=== PATIENT | male | born 1940 | race Caucasian/White ===

== ENCOUNTER 2017-07-01 07:38 | Day surgery (SDC) | payer MEDICARE ==
[2017-07-01] MEDS ORDERED: LACTATED RINGERS 1,000 ML IV ONE (07:45)
[2017-07-01] MEDS ORDERED: fentaNYL 100 MCG/2 ML VIAL IVP ONE (10:04)
[2017-07-01 10:37] VITALS: BP 139/81
== END 2017-07-01 07:39 | disposition home or self-care (01) ==
LOC: SDS 07:38
PROVIDERS: ATTEND Internal Medicine Gastroenterology
PROC: 0DBN8ZX Excision of Sigmoid Colon, Via Natural or Artificial Opening Endoscopic, Diagnostic (ICD-10-PCS; principal; 2017-07-01 08:45)
DX: Z12.11 Encounter for screening for malignant neoplasm of colon (principal); K63.5 Polyp of colon; K57.30 Diverticulosis of large intestine without perforation or abscess without bleeding; K64.8 Other hemorrhoids; I10 Essential (primary) hypertension; G47.30 Sleep apnea, unspecified; E66.01 Morbid (severe) obesity due to excess calories; Z68.41 Body mass index [BMI] 40.0-44.9, adult
CPT/HCPCS: 45380; 93005; J7120; 88305

== ENCOUNTER 2018-03-12 16:25 | Outpatient (CLI) | payer MEDICARE ==
--- NOTE | 2018-03-13 00:40 | XRAY Report ---
Reason: Right ankle pain and swelling Procedure Date: 03/12/2018 Accession Number: [id number] / [id number] Procedure: XR - Ankle 3 View RT CPT Code: FULL RESULT: EXAM: RIGHT ANKLE RADIOGRAPHY EXAM DATE: 03/12/2018 04:49 PM. CLINICAL HISTORY: Right ankle pain and swelling, worsening over last year. COMPARISON: None. TECHNIQUE: 3 views. FINDINGS: Bones: Old ununited avulsion fracture at the medial malleolar tip. Joints: No subluxation. Severe narrowing with sclerosis involving the talofibular joint and the lateral talotibial joint. Anterior and posterior tibial spurring. Soft Tissues: Lateral soft tissue swelling with dystrophic calcification. IMPRESSION: 1. Advanced osteoarthritis of the ankle joint. 2. Old ununited medial malleolar fracture fragment. RADIA
--- NOTE | 2018-03-13 00:49 | XRAY Report ---
Reason: Cough Procedure Date: 03/12/2018 Accession Number: [id number] / [id number] Procedure: XR - Chest 2 View X-Ray CPT Code: 66785 FULL RESULT: EXAM: CHEST RADIOGRAPHY EXAM DATE: 03/12/2018 04:49 PM. CLINICAL HISTORY: Cough for 3 weeks. COMPARISON: XR CHEST 1 VIEWS 10/21/2010 3:08 AM. TECHNIQUE: 2 views. FINDINGS: Lungs/Pleura: Stable mild scarring of the lateral left base, otherwise no focal opacities evident. No pleural effusion. No pneumothorax. Normal volumes. Mediastinum: Heart and mediastinal contours are unremarkable. Other: No compression fractures. IMPRESSION: No acute pulmonary abnormality or interval change. RADIA
== END 2018-03-12 16:26 | disposition home or self-care (01) ==
LOC: DI 16:25
PROVIDERS: ATTEND Internal Medicine
DX: M19.071 Primary osteoarthritis, right ankle and foot (principal); R05 Cough
CPT/HCPCS: 71046

== ENCOUNTER 2020-06-14 07:00 | Outpatient (CLI) | payer MEDICARE | END 2020-06-14 23:59 | disposition home or self-care (01) | LOC: COV 07:00 | PROVIDERS: ATTEND Family Medicine | DX: U07.1 COVID-19 (principal) ==

== ENCOUNTER 2020-07-23 13:09 | Outpatient (CLI) | payer MEDICARE ==
--- NOTE | 2020-07-23 15:41 | XRAY Report ---
PROCEDURE: Shoulder 3 View LT INDICATIONS: LEFT SHOULDER PAIN TECHNIQUE: 3 views of the shoulder were acquired. COMPARISON: None. FINDINGS: Bones: No fractures or dislocations. There is moderate to severe degeneration of the glenohumeral j oint with an space narrowing, subchondral sclerosis, and osteophytosis inferiorly. There is minimal a cromioclavicular joint degeneration. No suspicious bony lesions. Visualized ribs appear intact. Soft tissues: No suspicious soft tissue calcifications. IMPRESSION: 1. Moderate to severe glenohumeral joint degeneration. Reviewed by: Shawn March MD on 07/23/2020 3:40 PM PDT Approved by: Shawn March MD on 07/23/2020 3:40 PM PDT Station ID: [id number]
== END 2020-07-23 13:10 | disposition home or self-care (01) ==
LOC: DI 13:09
PROVIDERS: ATTEND Internal Medicine
DX: M19.012 Primary osteoarthritis, left shoulder (principal)

== ENCOUNTER 2020-07-26 14:35 | Emergency (ER) | payer MEDICARE ==
[2020-07-26 15:03] LABS: BASOPHILS % (AUTO) 0.7 %; EOSINOPHILS # (AUTO) 0.4 10^3/uL (0.0-0.7); EOSINOPHILS % (AUTO) 9.5 %; HCT - HEMATOCRIT 34.6 % (42.0-52.0); HGB - HEMOGLOBIN 12.2 g/dL (14.0-18.0); LYMPHOCYTES # (AUTO) 1.5 10^3/uL (1.5-3.5); LYMPHOCYTES % (AUTO) 35.9 %; MEAN CORPUSCULAR HEMOGLOBIN 35.2 pg (27.0-31.0); MEAN CORPUSCULAR HGB CONC 35.3 g/dL (32.0-36.0); MEAN CORPUSCULAR VOLUME 99.7 fL (80.0-94.0); MEAN PLATELET VOLUME 9.6 fL (7.4-11.4); MONOCYTES # (AUTO) 0.4 10^3/uL (0.0-1.0); MONOCYTES % (AUTO) 9.7 %; NEUTROPHILS # (AUTO) 1.9 10^3/uL (1.5-6.6); PLT - PLATELET COUNT 161 10^3/uL (130-450); RED BLOOD COUNT 3.47 10^6/uL (4.70-6.10); RED CELL DISTRIBUTION WIDTH 13.7 % (12.0-15.0); WHITE BLOOD COUNT 4.2 x10^3/uL (4.8-10.8)
[2020-07-26 15:14] LABS: ALBUMIN 3.6 g/dL (3.2-5.5); ALBUMIN/GLOBULIN RATIO 1.4 (1.0-2.2); BILIRUBIN,TOTAL 1.2 mg/dL (0.2-1.0); CALCIUM 9.4 mg/dL (8.5-10.3); CREATININE 1.2 mg/dL (0.6-1.2); MAGNESIUM 1.7 mg/dL (1.7-2.8); POTASSIUM 3.7 mmol/L (3.5-5.0); TOTAL PROTEIN 6.2 g/dL (6.7-8.2)
--- NOTE | 2020-07-26 15:17 | XRAY Report ---
PROCEDURE: Chest 1 View X-Ray INDICATIONS: Chest pain TECHNIQUE: One view of the chest was acquired. COMPARISON: 03/12/2018 FINDINGS: Surgical changes and devices: Small metallic density is seen projecting in left hilar region, unchang ed from prior study. Lungs and pleura: No pleural effusions or pneumothorax. Lungs are clear. Mediastinum: Mediastinal contours appear normal. Heart size is normal. Bones and chest wall: No suspicious bony lesions. Overlying soft tissues appear unremarkable. IMPRESSION: No acute cardiopulmonary pathology. Reviewed by: Johnnie Nathan MD on 07/26/2020 3:15 PM PDT Approved by: Johnnie Nathan MD on 07/26/2020 3:15 PM PDT Station ID: [id number]
--- NOTE | 2020-07-26 15:34 | ED Physician Documentation ---
PD HPI CHEST PAIN - Stated complaint Stated Complaint: ABNORMAL EKG - Chief complaint Chief Complaint: Cardiac - History obtained from History obtained from: Patient - Additional information Additional information: 80-year-old gentleman had life screening done yesterday and was told he was in atrial fibrillation and was referred to the emergency department. Its not exactly clear how the atrial fibrillation was diagnosed, he says there were stickers on his arm but not on his chest. So presume there was some sort of telemetry strip done. They did not give it to him. He says he feels fine. Has not been having any symptoms yesterday or today. No recent issues with chest pain or trouble breathing or pedal edema. Review of Systems Ten Systems: 10 systems reviewed and negative Constitutional: reports: Reviewed and negative Nose: reports: Reviewed and negative Throat: reports: Reviewed and negative Cardiac: reports: Reviewed and negative Respiratory: reports: Reviewed and negative PD PAST MEDICAL HISTORY - Past Medical History Cardiovascular: Hypertension, Arrhythmia Respiratory: Sleep apnea, CPAP use Endocrine/Autoimmune: None GI: Cholelithiasis, Other : Nocturia HEENT: Chronic sinusitis, Chronic hearing loss Psych: Depression, Post traumatic stress disorder Musculoskeletal: Osteoarthritis Derm: None - Past Surgical History General: Cholecystectomy Ortho: Knee replacement, Other HEENT: Cataracts - Present Medications Home Medications: Ambulatory Orders Medication Instructions Recorded Confirmed Amlodipine Besylate DAILY 07/12/13 07/13/13 Etodolac 07/12/13 07/12/13 Lisinopril/Hydrochlorothiazide BID 07/12/13 07/12/13 [Lisinopril-Hctz 20-25 mg Tab] hydroCHLOROthiazide 07/12/13 07/12/13 [Hydrochlorothiazide] - Allergies Allergies/Adverse Reactions: Allergies Allergy/AdvReac Type Severity Reaction Status Date / Time No Known Drug Allergies Allergy Verified 07/26/20 14:44 PD ED PE NORMAL - Vitals Vital signs reviewed: Yes - General General: Alert and oriented X 3, No acute distress - HEENT HEENT: PERRL, EOMI - Neck Neck: Supple, no meningeal sign, No bony TTP - Cardiac Cardiac: RRR, No murmur, Other (Frequent extrasystoles corresponding to PVCs on the monitor, no atrial arrhythmia.) - Respiratory Respiratory: No respiratory distress, Clear bilaterally - Abdomen Abdomen: Non tender - Back Back: No CVA TTP, No spinal TTP - Derm Derm: Normal color, Warm and dry - Extremities Extremities: No edema, No calf tenderness / cord - Neuro Neuro: Alert and oriented X 3, Normal speech Results - Vitals Vitals: Vital Signs - 24 hr 07/26/20 07/26/20 14:41 16:00 Temperature 36.1 C L 36.7 C Heart Rate 91 81 Respiratory 20 16 Rate Blood Pressure 166/75 H 152/75 H O2 Saturation 98 99 Oxygen O2 Source Room air - EKG (time done) 1441 Rate: Rate (enter#) (85) Rhythm: NSR (w pvcs) [place]: Normal Intervals: RBBB (incomplete) QRS: Normal Ischemia: Normal ST segments - Labs Labs: Laboratory Tests 07/26/20 07/26/20 07/26/20 14:54 14:54 14:54 WBC 4.2 L RBC 3.47 L Hgb 12.2 L Hct 34.6 L MCV 99.7 H MCH 35.2 H MCHC 35.3 RDW 13.7 Plt Count 161 MPV 9.6 Neut # (Auto) 1.9 Lymph # (Auto) 1.5 [place] # (Auto) 0.4 Eos # (Auto) 0.4 Baso # (Auto) 0.0 Absolute Nucleated RBC 0.00 Nucleated RBC % 0.0 Sodium 137 Potassium 3.7 Chloride 102 Carbon Dioxide 27 Anion Gap 8.0 BUN 22 H Creatinine 1.2 Estimated GFR (MDRD) 59 L Glucose 109 H Calcium 9.4 Magnesium 1.7 Total Bilirubin 1.2 H AST 18 ALT 18 Alkaline Phosphatase 60 Troponin I High Sens 5.1 Total Protein 6.2 L Albumin 3.6 Globulin 2.6 Albumin/Globulin Ratio 1.4 Lipase 28 TSH 07/26/20 14:54 WBC RBC Hgb Hct MCV MCH MCHC RDW Plt Count MPV Neut # (Auto) Lymph # (Auto) [place] # (Auto) Eos # (Auto) Baso # (Auto) Absolute Nucleated RBC Nucleated RBC % Sodium Potassium Chloride Carbon Dioxide Anion Gap BUN Creatinine Estimated GFR (MDRD) Glucose Calcium Magnesium Total Bilirubin AST ALT Alkaline Phosphatase Troponin I High Sens Total Protein Albumin Globulin Albumin/Globulin Ratio Lipase TSH 0.88 PD MEDICAL DECISION MAKING - ED course ED course: 80-year-old gentleman presents with potential asymptomatic A. fib. He has PVCs here but no evidence of A. fib. It is unclear whether he was actually ever in A. fib. Discussed that he could follow-up with his doctor and discuss Holter monitoring if there is persistent concern. Departure - Departure Disposition: 01 Home, Self Care Clinical Impression: PVCs (premature ventricular contractions) Condition: Good Record reviewed to determine appropriate education?: Yes Instructions: ED Palpitations Comments: We did not see any evidence of atrial fibrillation today. Follow-up with your primary care physician for further evaluation and treatment. Discharge Date/Time: 07/26/20 16:00
[2020-07-26 16:07] VITALS: BP 152/75
== END 2020-07-26 16:00 | disposition home or self-care (01) ==
LOC: ED 14:35
DX: I49.3 Ventricular premature depolarization (principal); I10 Essential (primary) hypertension
CPT/HCPCS: 36415; 80053; 83690; 83735; 84443; 84484; 85025; 93005; 99283; 99284

== ENCOUNTER 2021-01-27 14:49 | Outpatient (CLI) | payer MEDICARE ==
--- NOTE | 2021-01-27 15:44 | XRAY Report ---
PROCEDURE: Chest 2 View X-Ray INDICATIONS: CHEST PAIN TECHNIQUE: 2 view(s) of the chest. COMPARISON: July 26, 2020 FINDINGS: SUPPORT DEVICES: Redemonstrated metallic density in the left chest wall. LUNGS/PLEURA: Bibasilar densities, concerning for pneumonic infiltrates. No pleural effusion or pneum othorax. MEDIASTINUM: The cardiomediastinal silhouette is within normal limits. BONES/SOFT TISSUES: No acute abnormality. IMPRESSION: 1.Patchy bibasilar pneumonic infiltrates. Reviewed by: Pedro Dunne MD on 01/27/2021 3:43 PM PST Approved by: Pedro Dunne MD on 01/27/2021 3:43 PM PST Station ID: [id number]
== END 2021-01-27 14:50 | disposition home or self-care (01) ==
LOC: DI 14:49
PROVIDERS: ATTEND Internal Medicine
DX: R91.8 Other nonspecific abnormal finding of lung field (principal)

== ENCOUNTER 2021-02-02 20:00 | Emergency (ER) | payer MEDICARE ==
--- NOTE | 2021-02-02 20:33 | ED Physician Documentation ---
History of Present Illness - Stated complaint Stated Complaint: DECLINE/LOW BACK PX - Chief complaint Chief Complaint: Abd Pain - Additonal information Additional information: 80-year-old male presents to the emergency department For evaluation of approximately 1 month of low back pain. No falls or trauma. He denies saddle anesthesia. However he reports that he has been dribbling urine constantly for perhaps just as long as he has had the back pain. He was recently treated for pneumonia by Dr. Ho. He finished his antibiotics yesterday. He denies any has any pain with urination. No fevers or diarrhea. He has been taking tramadol with minimal relief of the pain. No saddle anesthesia. History is quite limited from this gentleman as his reports that he is very hard of hearing and in addition to that she finds that he has become increasingly confused. He has no obvious focal neuro deficits. His speech is fluid. His is concerned because he seems to be increasingly forgetful after his COVID-19 vaccine. She also attributes the low back pain and urinary retention to the vaccination. Review of Systems Constitutional: denies: Fever Cardiac: reports: Reviewed and negative Respiratory: reports: Reviewed and negative GI: denies: Abdominal Pain, Nausea : reports: Frequency, Unable to Void, Other (Dribbling urine. Denies dysuria.) Skin: reports: Reviewed and negative Musculoskeletal: reports: Back pain PD PAST MEDICAL HISTORY - Past Medical History Cardiovascular: Hypertension, Arrhythmia Respiratory: Sleep apnea, CPAP use Endocrine/Autoimmune: None GI: Cholelithiasis, Other : Nocturia HEENT: Chronic sinusitis, Chronic hearing loss Psych: Depression, Post traumatic stress disorder Musculoskeletal: Osteoarthritis Derm: None - Past Surgical History Past Surgical History: Yes General: Cholecystectomy Ortho: Knee replacement, Other HEENT: Cataracts - Present Medications Home Medications: Ambulatory Orders Medication Instructions Recorded Confirmed hydroCHLOROthiazide 25 mg PO DAILY 07/12/13 02/02/21 [Hydrochlorothiazide] Tramadol HCl [Ultram] 50 mg PO TID PRN 02/02/21 02/02/21 amLODIPine [Norvasc] 5 mg PO DAILY 02/02/21 02/02/21 - Allergies Allergies/Adverse Reactions: Allergies Allergy/AdvReac Type Severity Reaction Status Date / Time No Known Drug Allergies Allergy Verified 02/02/21 20:04 - Social History Does the pt smoke?: No Smoking Status: Never smoker Does the pt drink ETOH?: No Does the pt have substance abuse?: No PD ED PE EXPANDED - General General: Alert, No acute distress, Well developed/nourished - Cardiac Cardiac: Regular Rate, Radial strong equal, Pedal strong equal, Cap refill < 2 sec - Respiratory Respiratory: Clear to ausultation clarisse. No: Distress, Labored - Abdomen Abdomen: Normal Bowel sounds, Other (Large reducible mid abdominal wall hernia. Nontender). No: Tender to palpation - Rectal Rectal: Normal Tone - Back Back: Soft tissue tenderness (Lower midline lumbar tenderness. Does not radia te.), Other (Normal rectal tone. Bladder scan reveals 300 mils of urine). No: Vertebral tenderness, Straight leg raise + R, Straight leg raise + L - Extremities Extremities: Normal, Pedal edema bilateral. No: Deformity, Tenderness - Neuro Neuro: Alert and Oriented X 3, CNII-XII intact, Normal finger nose, Normal speec h - GCS Eye Opening: Spontaneous Motor: Obeys Commands Verbal: Oriented Total: 15 Results - Vitals Vitals: Vital Signs - 24 hr 02/02/21 02/02/21 02/03/21 20:04 23:11 00:00 Temperature 36.5 C Heart Rate 90 96 92 Respiratory 16 10 L 18 Rate Blood Pressure 158/50 H 136/58 H 145/83 H O2 Saturation 98 97 96 Oxygen O2 Source Room air - EKG (time done) 2158 Rate: Rate (enter#) (96) Rhythm: NSR [place]: Other (IVCD) Intervals: Prolonged [place] Ischemia: Non specific changes Compare to prior EKG: Unchanged from prior EKG Computer interpretation: Agree with computer - Labs Labs: Laboratory Tests 02/02/21 02/02/21 02/02/21 20:05 20:43 20:43 WBC 10.8 RBC 2.32 L Hgb 8.4 L Hct 24.7 L MCV 106.5 H MCH 36.2 H MCHC 34.0 RDW 14.7 Plt Count 114 L MPV 10.0 Neut # (Auto) Not Reportable Lymph # (Auto) Not Reportable [place] # (Auto) Not Reportable Eos # (Auto) Not Reportable Baso # (Auto) Not Reportable Absolute Nucleated RBC Not Reportable Total Counted 100 Band Neuts % (Manual) 2 Reactive Lymphs % (Man) 2 Abnorm Lymph % (Manual) 0 Nucleated RBC % Not Reportable Neutrophils # (Manual) 3.0 Lymphocytes # (Manual) 6.3 H Monocytes # (Manual) 0.6 Eosinophils # (Manual) 0.8 H Basophils # (Manual) 0.1 Differential Comment MANUAL DIFFERENTIAL Platelet Estimate DECREASED (<130,000) Platelet Morphology NORMAL APPEARANCE RBC Morph Micro Appear NORMAL APPEARANCE Sodium 138 Potassium 4.0 Chloride 95 L Carbon Dioxide 28 Anion Gap 15.0 H BUN 97 H* Creatinine 5.4 H Estimated GFR (MDRD) 10 L Glucose 122 H Calcium 16.1 H* Total Bilirubin AST ALT Alkaline Phosphatase B-Natriuretic Peptide Total Protein Albumin Lipase Urine Color YELLOW Urine Clarity HAZY Urine pH 5.0 Ur Specific [place] 1.025 Urine Protein NEGATIVE Urine Glucose (UA) NEGATIVE Urine Ketones NEGATIVE Urine Occult Blood MODERATE H Urine Nitrite NEGATIVE Urine Bilirubin NEGATIVE Urine Urobilinogen 0.2 (NORMAL) Ur Leukocyte Esterase NEGATIVE Urine RBC 11-25 H Urine WBC 6-10 H Ur Squamous Epith Cells NONE SEEN Urine Crystals 11-25 Ca Oxalate Urine Bacteria Few Ur Microscopic Review INDICATED Urine Culture Comments NOT INDICATED Nasal Adenovirus (PCR) Nasal B. parapertussis DNA (PCR) Nasal Coronavir 229E PCR Nasal Coronavir HKU1 PCR Nasal Coronavir NL63 PCR Nasal Coronavir OC43 PCR Nasal Enterovir/Rhinovir PCR Nasal Influenza B PCR Nasal Influenza A PCR Nasal Parainfluen 1 PCR Nasal Parainfluen 2 PCR Nasal Parainfluen 3 PCR Nasal Parainfluen 4 PCR Nasal RSV (PCR) Nasal B.pertussis DNA PCR Nasal C.pneumoniae (PCR) Vidal Human Metapneumo PCR Nasal M.pneumoniae (PCR) Nasal SARS-CoV-2 (PCR) 02/02/21 02/02/21 02/02/21 20:43 20:43 21:40 WBC RBC Hgb Hct MCV MCH MCHC RDW Plt Count MPV Neut # (Auto) Lymph # (Auto) [place] # (Auto) Eos # (Auto) Baso # (Auto) Absolute Nucleated RBC Total Counted Band Neuts % (Manual) Reactive Lymphs % (Man) Abnorm Lymph % (Manual) Nucleated RBC % Neutrophils # (Manual) Lymphocytes # (Manual) Monocytes # (Manual) Eosinophils # (Manual) Basophils # (Manual) Differential Comment Platelet Estimate Platelet Morphology RBC Morph Micro Appear Sodium Potassium Chloride Carbon Dioxide Anion Gap BUN Creatinine Estimated GFR (MDRD) Glucose Calcium Total Bilirubin 1.3 H AST 21 ALT 29 Alkaline Phosphatase 82 B-Natriuretic Peptide 177 H Total Protein 6.2 L Albumin 3.6 Lipase 24 Urine Color Urine Clarity Urine pH Ur Specific [place] Urine Protein Urine Glucose (UA) Urine Ketones Urine Occult Blood Urine Nitrite Urine Bilirubin Urine Urobilinogen Ur Leukocyte Esterase Urine RBC Urine WBC Ur Squamous Epith Cells Urine Crystals Urine Bacteria Ur Microscopic Review Urine Culture Comments Nasal Adenovirus (PCR) NOT DETECTED Nasal B. parapertussis DNA (PCR) NOT DETECTED Nasal Coronavir 229E PCR NOT DETECTED Nasal Coronavir HKU1 PCR NOT DETECTED Nasal Coronavir NL63 PCR NOT DETECTED Nasal Coronavir OC43 PCR NOT DETECTED Nasal Enterovir/Rhinovir PCR NOT DETECTED Nasal Influenza B PCR NOT DETECTED Nasal Influenza A PCR NOT DETECTED Nasal Parainfluen 1 PCR NOT DETECTED Nasal Parainfluen 2 PCR NOT DETECTED Nasal Parainfluen 3 PCR NOT DETECTED Nasal Parainfluen 4 PCR NOT DETECTED Nasal RSV (PCR) NOT DETECTED Nasal B.pertussis DNA PCR NOT DETECTED Nasal C.pneumoniae (PCR) NOT DETECTED [place] Human Metapneumo PCR NOT DETECTED Nasal M.pneumoniae (PCR) NOT DETECTED Nasal SARS-CoV-2 (PCR) NOT DETECTED - Rads (name of study) lumbar CT Radiology: Prelim report reviewed (hydronephrosis. a few small non-obstructing kidney stones. no free fluid. ventral abdominal wall hernia containing small bowel), Final report received (Evidence of acute compression fracture. Diffuse degenerative change. Multilevel canal stenosis. Significant multilevel foraminal narrowing) CXR Radiology: Final report received (minimal left basilar opacity) CTAP wo Radiology: Final report received CT chest wo Radiology: Final report received (subtle patchy ground glass opacity upper lobes. small expansile soft tissue lesions in the right 4th rib and 7th vertebral body. these coul dbe due to a myeloma lesions. left subpectoral nodule with biopsy clip.) PD MEDICAL DECISION MAKING - ED course Complexity details: reviewed results, re-evaluated patient, considered differential, d/w patient, d/w family ED course: 80-year-old male who has a history most significant for hypertension and sleep apnea presents to the emergency department for evaluation of 1 month low back pain as well as dribbling urine. There have been no falls or trauma. There is no saddle anesthesia or loss of rectal tone. His describes the patient as becoming increasingly anorexic and forgetful/confused, fatigued over the last month. He was recently treated for pneumonia through his primary care provider and finished his antibiotics yesterday Initially given the reports of dribbling urine bladder scan was obtained and it showed about 300 mils of urine. A Apodaca catheter was placed and 300 mils of urine indeed drained. There is no findings of infection on UA. We did proceed to do a lumbar CT to evaluate for compression fracture or central canal stenosis/lytic lesions. There is significant degenerative disc disease and some mild central canal stenosis but no acute or otherwise worrisome findings. Unfortunately his screening labs show that over the last 7 months he has developed progressive anemia with a hemoglobin now of 8.4. However more worrisome is the acute kidney injury with a BUN greater than 90 and a creatinine of 5.4. His calcium is 16. Based on the hypercalcemia 1 L of IV fluids was initiated. Potassium was normal. EKG not significantly changed over the last year. The constellation of lab findings and symptoms however is worrisome for a more acute process such as multiple myeloma. This patient was presented for admission to our hospital but given our lack of nephrology services as well as urology services he was declined. 2200: CT of the chest abdomen and pelvis without contrast is pending. He will unfortunately require transfer to an acute tertiary facility. The [facility] has no beds available. I have discussed with the patient and his out findings and the plan to transfer when a bed becomes available. Pt will be signed out to my colleague Dr. Lerner to f/u with tertiary facilities Departure - Departure Disposition: 02 Transfer Acute Care Hosp Clinical Impression: JUAN CARLOS (acute kidney injury), Hypercalcemia Low back pain Qualifiers: Chronicity: acute Back pain laterality: midline Sciatica presence: without sciatica Qualified Code(s): M54.50 - Low back pain, unspecified Condition: Stable Discharge Date/Time: 02/03/21 00:45
[2021-02-02 20:35] LABS: BILIRUBIN,URINE NEGATIVE (NEGATIVE); GLUCOSE, URINE (UA) NEGATIVE (NEGATIVE); KETONES,URINE (UA) NEGATIVE (NEGATIVE); LEUKOCYTE ESTERASE, URINE NEGATIVE (NEGATIVE); NITRITE,URINE NEGATIVE (NEGATIVE); OCCULT BLOOD,URINE MODERATE (NEGATIVE); PROTEIN,URINE NEGATIVE (NEGATIVE); UROBILINOGEN,URINE 0.2 (NORMAL) E.U./dL (NORMAL)
[2021-02-02 20:38] LABS: CLARITY,URINE HAZY (CLEAR)
[2021-02-02 20:51] LABS: BACTERIA,URINE Few /HPF (None Seen); CRYSTALS,URINE 11-25 Ca Oxalate /LPF; SQUAMOUS EPITHELIAL CELL,UR NONE SEEN (<= Few)
[2021-02-02 21:00] LABS: BASOPHILS % (AUTO) 0.5 %; EOSINOPHILS % (AUTO) 4.4 %; HCT - HEMATOCRIT 24.7 % (42.0-52.0); HGB - HEMOGLOBIN 8.4 g/dL (14.0-18.0); LYMPHOCYTES % (AUTO) 19.9 %; MEAN CORPUSCULAR HEMOGLOBIN 36.2 pg (27.0-31.0); MEAN CORPUSCULAR VOLUME 106.5 fL (80.0-94.0); MONOCYTES % (AUTO) 50.1 %; NEUTROPHILS % (AUTO) 24.5 %; PLT - PLATELET COUNT 114 10^3/uL (130-450); RED BLOOD COUNT 2.32 10^6/uL (4.70-6.10); RED CELL DISTRIBUTION WIDTH 14.7 % (12.0-15.0); WHITE BLOOD COUNT 10.8 x10^3/uL (4.8-10.8)
[2021-02-02 21:04] LABS: ABNORMAL LYMPHS % (MANUAL) 0 %
[2021-02-02] MEDS ORDERED: TAMSULOSIN 0.4 MG CAPSULE PO STA (21:11)
[2021-02-02 21:15] LABS: CREATININE 5.4 mg/dL (0.6-1.2)
[2021-02-02 21:18] LABS: CALCIUM 16.1 mg/dL (8.5-10.3)
[2021-02-02 21:23] LABS: BAND NEUTROPHILS % (MANUAL) 2 %; BASOPHILS # (MANUAL) 0.1 10^3/uL (0-0.1); BASOPHILS % (MANUAL) 1 %; DIFFERENTIAL COMMENT MANUAL DIFFERENTIAL; EOSINOPHILS # (MANUAL) 0.8 10^3/uL (0-0.7); LYMPHOCYTES # (MANUAL) 6.3 10^3/uL (1.5-3.5); LYMPHOCYTES % (MANUAL) 56 %; MONOCYTES # (MANUAL) 0.6 10^3/uL (0.0-1.0); PLATELET ESTIMATE, MANUAL DECREASED (<130,000) (NORMAL); PLATELET MORPHOLOGY NORMAL APPEARANCE (NORMAL); RBC MORPHOLOGY (MULTIPLE) NORMAL APPEARANCE (NORMAL); REACTIVE LYMPHS % (MANUAL) 2 %
--- NOTE | 2021-02-02 21:28 | CT Report ---
PROCEDURE: LUMBAR SPINE WO INDICATIONS: low back pain trouble urinating TECHNIQUE: Noncontrast 3 mm thick sections acquired from the T12 level to the sacrum. Sagittal and coronal refo rmats were constructed. For radiation dose reduction, the following was used: automated exposure co ntrol, adjustment of mA and/or kV according to patient size. COMPARISON: None. FINDINGS: Image quality: Excellent. Bones: There is normal bony alignment. No acute vertebral body compression fractures. No suspiciou s lytic or blastic bony lesions. Central spinal caliber is of normal overall caliber. No pars defec ts. T11-T12: No canal stenosis. Moderately severe left foraminal stenosis. T12-L1: No canal stenosis or foraminal stenosis. L1-L2: Diffuse disc bulge. Canal stenosis is probably moderate. Mild to moderate bilateral foramin al narrowing. L2-L3: Mild disc bulge. No canal stenosis. Bilateral facet hypertrophy. L3-L4: Posterior disc bulge. Mild canal stenosis. Mild to moderate bilateral foraminal stenosis. L4-L5: Posterior disc plus osteophyte. Possible mild canal stenosis. Moderate to severe right warren inal narrowing. Severe left foraminal narrowing. L5-S1: Posterior disc bulge plus osteophyte. Mild canal stenosis. Bilateral facet hypertrophy. Abigail re right foraminal narrowing and moderate left foraminal narrowing. Soft tissues: No retroperitoneal masses or hematomas. Visualized aorta is normal in caliber. IMPRESSION: 1. No evidence of acute compression fracture. 2. Diffuse degenerative change. Excellent 3. Multilevel canal stenosis, moderate at L1-L2, mild at L3-L4, mild at L4-L5, and mild at L5-S1. 4. Significant multilevel foraminal narrowing as described above. Reviewed by: Alexis Cuba MD on 02/02/2021 9:27 PM PST Approved by: Alexis Cuba MD on 02/02/2021 9:27 PM PST Station ID: [id number]
[2021-02-02] MEDS ORDERED: SODIUM CHLORIDE 0.9% 1,000 ML IV STA ×2 (21:30→22:51)
[2021-02-02 21:45] LABS: ALBUMIN 3.6 g/dL (3.2-5.5); BILIRUBIN,TOTAL 1.3 mg/dL (0.2-1.0); TOTAL PROTEIN 6.2 g/dL (6.7-8.2)
--- NOTE | 2021-02-02 22:19 | XRAY Report ---
PROCEDURE: Chest 1 View X-Ray INDICATIONS: chest pain TECHNIQUE: One view of the chest was acquired. COMPARISON: CXR 01/27/2021. FINDINGS: Surgical changes and devices: None. Lungs and pleura: No pleural effusions or pneumothorax. Minimal left basilar opacity is appreciated. This appears similar to the prior CXR. Mediastinum: Mediastinal contours appear unchanged. Heart size is within normal limits. Bones and chest wall: No suspicious bony lesions. Overlying soft tissues appear unremarkable. IMPRESSION: Minimal left basilar opacity is appreciated. As could be seen in the setting of atelectasis or pneumo taylor or aspiration. Reviewed by: Valentino Vides MD on 02/02/2021 10:18 PM PST Approved by: Valentino Vides MD on 02/02/2021 10:18 PM PST Station ID: [id number]
--- NOTE | 2021-02-02 22:28 | CT Report ---
PROCEDURE: Abdomen/Pelvis WO INDICATIONS: JUAN CARLOS TECHNIQUE: Noncontrast 5 mm thick sections acquired from the diaphragms to the symphysis. 5 mm coronal and sagi ttal reformats were then performed. For radiation dose reduction, the following was used: automated exposure control, adjustment of mA and/or kV according to patient size. COMPARISON: None. FINDINGS: Image quality: Good. Motion at the lung bases. ABDOMEN: Lung bases: Minimal bibasilar atelectasis. Heart size is normal. Solid organs: Liver and spleen are normal in size. Metallic density at the gallbladder presumably du e to cholecystectomy clips. However, there is a small cystic structure which could represent dilatati on of the cystic duct. Pancreas is trace fatty atrophy. No adrenal nodules. Kidneys are normal in s ize, without hydronephrosis. A few nonobstructing kidney stones bilaterally. Largest on the left sapphire ures 1.1 cm and on the right measures 0.5 cm. Peritoneum and bowel: Unenhanced bowel loops demonstrate normal wall thickness and caliber. No free fluid or air. Nodes and vessels: No retroperitoneal or mesenteric adenopathy by size criteria. Aorta and inferior vena cava are normal in caliber. Miscellaneous: Wide neck ventral abdominal wall hernia containing small bowel. PELVIS: Genitourinary: Bladder is decompressed with Apodaca catheter. Bladder wall appears thickened. Miscellaneous: No definite inguinal hernias or adenopathy. Bones: No suspicious bony lesions. Moderate DDD. No vertebral body compression fractures. IMPRESSION: 1. No hydronephrosis. A few small nonobstructing kidney stones bilaterally. 2. Bladder is decompressed with Apodaca catheter. However, the bladder wall appears thickened. 3. No free fluid. No small bowel obstruction. 4. Ventral abdominal wall hernia containing small bowel. Reviewed by: Valentino Vides MD on 02/02/2021 10:26 PM [facility] Approved by: Valentino Vides MD on 02/02/2021 10:26 PM PST Station ID: [id number]
--- NOTE | 2021-02-02 22:40 | CT Report ---
PROCEDURE: CHEST WO INDICATIONS: hypercalcemia, JUAN CARLOS; ? multiple myeloma TECHNIQUE: Noncontrast 1mm axial images were acquired from the pulmonary apices to the posterior costophrenic an gles. Axial 5 mm soft tissue kernel reconstructions were performed as well as 8 mm axial MIP and cor onal and sagittal 5 mm reformations. For radiation dose reduction, the following was used: automate d exposure control, adjustment of mA and/or kV according to patient size. COMPARISON: Same day CT abdomen and pelvis and CXR. CXR 01/27/2021. FINDINGS: Image quality: Excellent. Lungs and pleura: There is subtle patchy groundglass opacity in the upper lobes bilaterally. There is reticular thickening at the lung is also on the differential diagnosis. Has the appearance of atelec tasis. No pleural effusions or pneumothorax. Central and peripheral airways are patent and normal in caliber. Mediastinum: Heart size is normal. No pericardial effusion. No mediastinal adenopathy by size crit eria. Thoracic aorta and central pulmonary arteries are normal in size. Esophagus is normal in louie joyce. No hiatal hernia. Bones and chest wall: Right anterior fourth rib expansile soft tissue lesion measuring 2 cm, (05/25). Left subpectoral nodule measuring 2.2 cm (05/25). There is a biopsy marker at this site. Expansile les ion in the left seventh vertebral body, (). Adjacent exophytic nodule versus lymph node which pr ojects anterolaterally. No vertebral body compression fractures. Altered level DDD. No axillary or arreguin praclavicular adenopathy by size criteria. The thyroid is normal in size and there are no incidental findings. Abdomen: Visualized upper abdominal solid organs and bowel loops appear normal in the absence of con trast. No obstructing kidney stones. Suspect cholecystectomy clips and cystic dilatation of the cysti c duct remnant. No calcification in the liver. Small hypodensity at the right dome of the liver which is indeterminate but could represent a cyst or hemangioma.. IMPRESSION: 1. Subtle patchy ground glass opacity in the upper lobes. This could be due to low-grade infectious/i nflammatory etiology. Atelectasis is also on the differential diagnosis. 2. Small expansile soft tissue lesions in the right 4th rib and left 7th vertebral body. These could be due to a myeloma lesions. 3. Left subpectoral nodule with biopsy clip. Please see separately dictated CT abdomen and pelvis. Reviewed by: Valentino Vides MD on 02/02/2021 10:38 PM PST Approved by: Valentino Vides MD on 02/02/2021 10:38 PM PST Station ID: [id number]
[2021-02-02 23:41] LABS: B. PARAPERTUSSIS- RESP PCR PAN NOT DETECTED; B. PERTUSSIS- RESP PCR PANEL NOT DETECTED; C. PNEUMONIAE- RESP PCR PANEL NOT DETECTED; CORONAVIRUS 229E-RESP PCR NOT DETECTED; CORONAVIRUS HKU1-RESP PCR NOT DETECTED; CORONAVIRUS NL63-RESP PCR NOT DETECTED; CORONAVIRUS OC43-RESP PCR NOT DETECTED; HUMAN METAPNEUMOVIRUS NOT DETECTED; INFLUENZA A- RESP PCR PANEL NOT DETECTED; INFLUENZA B - RESP PCR PANEL NOT DETECTED; M. PNEUMONIAE- RESP PCR PANEL NOT DETECTED; PARAINFLUENZA VIRUS 1 NOT DETECTED; PARAINFLUENZA VIRUS 2 NOT DETECTED; PARAINFLUENZA VIRUS 3 NOT DETECTED; PARAINFLUENZA VIRUS 4 NOT DETECTED; RHINOVIRUS/ENTEROVIRUS NOT DETECTED; RSV- RESP PCR PANEL NOT DETECTED; SARS-CoV-2 -RESP PCR PANEL NOT DETECTED
[2021-02-03 00:06] VITALS: BP 145/83
--- NOTE | 2021-02-03 00:18 | ED Physician Documentation ---
ED Addendum - Addendum Addendum: 02/03/21 00:14 Received care of case from off-going ED [employer] Jorge. ED GERIATRIC NURSE contacted [facility] ([facility]), and [facility] physician nutritionist public health says we can admit this patient wherever we are able to get an appropriate bed. I discussed the case with Dr. Saenz (neprhology at [facility]), recommends IV fluids (one liter thus far, he says patient will need significantly more and thus I ordered a second liter NS; further fluids can be ordered once he has been transferred, or initiated in [facility] ED if he is still here). Dr. Saenz says patient is appropriate for transfer, recommends admit to hospitalist service. I then d/w Dr. Betancourt who accepts patient as long as the COVID swab result is negative. Subsequently, the COVID/respiratory PCR panel came back negative for all viruses tested including COVID-19
== END 2021-02-03 00:45 | disposition short-term general hospital (02) ==
LOC: ED 20:00
DX: M51.36 Other intervertebral disc degeneration, lumbar region (principal); M48.061 Spinal stenosis, lumbar region without neurogenic claudication; N17.9 Acute kidney failure, unspecified; E83.52 Hypercalcemia; D64.9 Anemia, unspecified; K43.9 Ventral hernia without obstruction or gangrene; I44.0 Atrioventricular block, first degree; I10 Essential (primary) hypertension; G47.30 Sleep apnea, unspecified; Z20.822 Contact with and (suspected) exposure to COVID-19
CPT/HCPCS: 36415; 51702; 71045; 71250; 72131; 74176; 80048; 81001; 82040; 82247; 83690; 83880; 84075; 84155; 84450; 84460; 85025; 87631; 93005; 99283; 99285; A9270; 0202U; 80053; 81003; 87086

== ENCOUNTER 2021-02-03 00:39 | Outpatient (CLI) | payer MEDICARE | END 2021-02-03 00:40 | disposition short-term general hospital (02) | LOC: EMS 00:39 | PROVIDERS: ATTEND Emergency Medicine | DX: R33.9 Retention of urine, unspecified (principal) | CPT/HCPCS: A0425; A0428 ==

== ENCOUNTER 2021-02-25 09:34 | Emergency (ER) | payer MEDICARE ==
--- NOTE | 2021-02-25 09:41 | ED Physician Documentation ---
PD HPI CHEST PAIN - Stated complaint Stated Complaint: CHEST PAIN - History obtained from History obtained from: Patient - History of Present Illness Timing - onset: How many days ago (4-5) Timing - onset during: Light activity (he has noted sternal to left chest pain with movement and some with breathing intermittently for 4-5 days and more consistent the past 2 days.) Timing - duration: Days Timing - details: Gradual onset, Still present, Waxing and waning Quality: Aching, Sharp, Pain Location: Substernal, Left chest Radiation: No: Jaw, Neck, Back Improved by: No: Rest Worsened by: Exertion, Inspiration, Movement Associated symptoms: No: Shortness of air, Nausea, Feeling faint / dizzy Similar symptoms before: No diagnosis (he says he had this pain while in hospital at [facility] with EKG DOne. No Dx. pain worse yesterday and seen in office Dr. Ho with ECG SHowing rate controlled atrial fib. Had pain worse today and called her office. SHE referred him to the ER.) Recently seen: Admitted (at [facility] for acute renal failure and had dialysis couple times, and states the Nephroligist has said patient will not need further dialysis. ALso treated for new DX Multiple Myeloma with chemo that he is now doing weekly.) Review of Systems Constitutional: denies: Fever, Chills Nose: denies: Rhinorrhea / runny nose, Congestion Throat: denies: Sore throat Respiratory: denies: Cough GI: denies: Abdominal Pain, Nausea, Vomiting Skin: denies: Rash, Lesions Neurologic: denies: Generalized weakness, Near syncope PD PAST MEDICAL HISTORY - Past Medical History Cardiovascular: Hypertension, Arrhythmia Respiratory: Sleep apnea, CPAP use Endocrine/Autoimmune: None GI: Cholelithiasis, Other : Nocturia HEENT: Chronic sinusitis, Chronic hearing loss Psych: Depression, Post traumatic stress disorder Musculoskeletal: Osteoarthritis Derm: None - Past Surgical History Past Surgical History: Yes General: Cholecystectomy Ortho: Knee replacement, Other HEENT: Cataracts - Present Medications Home Medications: Ambulatory Orders Medication Instructions Recorded Confirmed hydroCHLOROthiazide 25 mg PO DAILY 07/12/13 02/02/21 [Hydrochlorothiazide] Tramadol HCl [Ultram] 50 mg PO TID PRN 02/02/21 02/02/21 amLODIPine [Norvasc] 5 mg PO DAILY 02/02/21 02/02/21 HYDROcod/ACETAM 5/325 [[place] 5/325] 1 ea PO Q6H PRN #12 tablet 02/25/21 - Allergies Allergies/Adverse Reactions: Allergies Allergy/AdvReac Type Severity Reaction Status Date / Time No Known Drug Allergies Allergy Verified 02/25/21 09:56 - Social History Does the pt smoke?: No Smoking Status: Never smoker Does the pt drink ETOH?: No Does the pt have substance abuse?: No - Immunizations Immunizations are current?: Yes - POLST Patient has POLST: No PD ED PE NORMAL - Vitals Vital signs reviewed: Yes - General General: Alert and oriented X 3, No acute distress, Well developed/nourished - HEENT HEENT: Moist mucous membranes, Pharynx benign - Neck Neck: Supple, no meningeal sign, No adenopathy - Cardiac Cardiac: RRR, Other (right chest wall with hemodialysis catheter, without signs of infection. ) - Respiratory Respiratory: No respiratory distress, Clear bilaterally - Abdomen Abdomen: Normal bowel sounds, Soft, Non tender, Non distended - Derm Derm: Normal color, Warm and dry - Extremities Extremities: Normal ROM s pain, No calf tenderness / cord, Other (1+ edema in both lower legw without tenderness. ) - Neuro Neuro: Alert and oriented X 3, No motor deficit, Normal speech Results - Vitals Vitals: Vital Signs - 24 hr 02/25/21 02/25/21 02/25/21 09:48 10:55 11:55 Temperature 36.1 C L Heart Rate 134 H 113 H 111 H Respiratory 20 18 18 Rate Blood Pressure 159/105 H 150/96 H 132/91 H O2 Saturation 99 97 98 02/25/21 02/25/21 02/25/21 12:55 13:00 13:30 Temperature 36.5 C Heart Rate 92 119 H 90 Respiratory 20 19 18 Rate Blood Pressure 127/99 H 146/97 H 127/99 H O2 Saturation 98 96 100 Oxygen O2 Source Room air - EKG (time done) 09:47 Rate: Rate (enter#) (132) Rhythm: Atrial fibrillation [place]: Normal QRS: Normal, LVH Ischemia: Normal ST segments. No: ST elevation c/w ischemia, ST depression - Labs Labs: Laboratory Tests 12/28/21 12/28/21 12/28/21 10:31 10:31 10:31 WBC 1.9 L* RBC 2.41 L Hgb 8.1 L Hct 25.5 L MCV 105.8 H MCH 33.6 H MCHC 31.8 L RDW 16.2 H Plt Count 52 L MPV 11.1 Neut # (Auto) 1.3 L Lymph # (Auto) 0.[address] [place] # (Auto) 0.2 Eos # (Auto) 0.1 Baso # (Auto) 0.0 Absolute Nucleated RBC 0.00 Total Counted ENVIRONMENTAL CONSERVATION PROFESSOR Band Neuts % (Manual) Not Reportable Abnorm Lymph % (Manual) Not Reportable Nucleated RBC % 0.0 Neutrophils # (Manual) Not Reportable Lymphocytes # (Manual) Not Reportable Monocytes # (Manual) Not Reportable Eosinophils # (Manual) Not Reportable Basophils # (Manual) Not Reportable Differential Comment MANUAL=AUTO DIFF Manual Slide Review Indicated WBC Morphology NORMAL APPEARANCE Platelet Estimate DECREASED (<130,000) Platelet Morphology NORMAL APPEARANCE RBC Morph Micro Appear 1+ OVALOCYTES D-Dimer Sodium 138 Potassium 4.7 Chloride 104 Carbon Dioxide 25 Anion Gap 9.0 BUN 40 H Creatinine 2.2 H Estimated GFR (MDRD) 29 L Glucose 96 Calcium 7.2 L Magnesium 1.8 Total Bilirubin 1.3 H AST 20 ALT 66 H Alkaline Phosphatase 138 H Troponin I High Sens 6.9 B-Natriuretic Peptide Total Protein 5.5 L Albumin 3.2 Globulin 2.3 Albumin/Globulin Ratio 1.4 Lipase 29 02/25/21 02/25/21 10:31 10:31 WBC RBC Hgb Hct MCV MCH MCHC RDW Plt Count MPV Neut # (Auto) Lymph # (Auto) [place] # (Auto) Eos # (Auto) Baso # (Auto) Absolute Nucleated RBC Total Counted Band Neuts % (Manual) Abnorm Lymph % (Manual) Nucleated RBC % Neutrophils # (Manual) Lymphocytes # (Manual) Monocytes # (Manual) Eosinophils # (Manual) Basophils # (Manual) Differential Comment Manual Slide Review WBC Morphology Platelet Estimate Platelet Morphology RBC Morph Micro Appear D-Dimer 432.2 H Sodium Potassium Chloride Carbon Dioxide Anion Gap BUN Creatinine Estimated GFR (MDRD) Glucose Calcium Magnesium Total Bilirubin AST ALT Alkaline Phosphatase Troponin I High Sens B-Natriuretic Peptide 253 H Total Protein Albumin Globulin Albumin/Globulin Ratio Lipase - Rads (name of study) chest xray Radiology: Prelim report reviewed (no infiltrates, no effusion), See rad report PD MEDICAL DECISION MAKING - ED course Complexity details: reviewed results, re-evaluated patient (feeling more comfortable with some Morphine. CLnically seems chestwall pain. ), considered differential, d/w patient, d/w design studio consultant (DR. Ho, PMD, who will consult Nephrology about beta maksim for fib (which had been stopped and not restarted on [facility] admission). ) Departure - Departure Disposition: 01 Home, Self Care Clinical Impression: Muscular chest pain, Atrial fibrillation with rapid ventricular response Condition: Stable Record reviewed to determine appropriate education?: Yes Instructions: ED Chest Pain Costochondritis Follow-Up: Graciela Ho MD [Primary Care Provider] - Prescriptions: HYDROcod/ACETAM 5/325 [[place] 5/325] 1 ea PO Q6H PRN #12 tablet PRN Reason: Pain Comments: I feel the pain in your chest is a muscular or musculoskeletal pain. There is no signs of heart attack, heart failure, collapsed lung, pneumonia, fluid around the lung nor blood clots. At this point I would suggest continuing the Tylenol 4 times a day regularly for the next several days to week or so. If needed to that you could add the hydrocodone for times of worse pain or trouble sleeping etc. I would expect this to be short-term. This was transmitted to [facility] pharmacy. You also were in atrial fibrillation with a somewhat fast heart rate. You will likely need to be on a medication for controlling the heart rate plus your blood pressure. I talked with Dr. Ho about your results and she is going to contact Dr. Carpenter your engineer technical staff to discuss the appropriate medication for you. She will call you later to discuss the decisions and which medication to start. You should continue with the furosemide prescribed for you on discharge and any other medications from discharge. I am prescribing a short course of narcotic pain medication for you. These are potentially dangerous and addictive medications that should be used carefully. These medications may constipate you. Take an [id number] stool softener such as docusate twice daily with plenty of water while taking these medications. If you go 24 hours without a bowel movement, take [id number] MiraLAX, per package instructions. Do not drink or drive while taking these medications. If you received narcotic or sedating medications while in the emergency department do not drive for 24 hours. Store this medication in a safe, secure place and out of reach of children. It is a violation of federal law to give or sell this medication to another person or to use in a manner other than prescribed. The ED will not refill narcotic prescriptions, including prescriptions lost or stolen. You can dispose of unwanted medications at the [facility]'s office or at several pharmacies such as [facility]. Discharge Date/Time: 02/25/21 13:49
[2021-02-25] MEDS ORDERED: MORPHINE 2 MG/ML CARPUJECT IVP STA (10:16)
[2021-02-25] MEDS ORDERED: METOPROLOL 5 MG/5 ML VIAL IVP STA ×2 (10:17→13:03)
[2021-02-25 10:39] LABS: EOSINOPHILS # (AUTO) 0.1 10^3/uL (0.0-0.7); EOSINOPHILS % (AUTO) 3.8 %; HCT - HEMATOCRIT 25.5 % (42.0-52.0); HGB - HEMOGLOBIN 8.1 g/dL (14.0-18.0); LYMPHOCYTES # (AUTO) 0.3 10^3/uL (1.5-3.5); LYMPHOCYTES % (AUTO) 17.3 %; MEAN CORPUSCULAR HEMOGLOBIN 33.6 pg (27.0-31.0); MEAN CORPUSCULAR HGB CONC 31.8 g/dL (32.0-36.0); MEAN CORPUSCULAR VOLUME 105.8 fL (80.0-94.0); MEAN PLATELET VOLUME 11.1 fL (7.4-11.4); MONOCYTES # (AUTO) 0.2 10^3/uL (0.0-1.0); MONOCYTES % (AUTO) 9.7 %; NEUTROPHILS # (AUTO) 1.3 10^3/uL (1.5-6.6); NEUTROPHILS % (AUTO) 69.2 %; PLT - PLATELET COUNT 52 10^3/uL (130-450); RED BLOOD COUNT 2.41 10^6/uL (4.70-6.10); RED CELL DISTRIBUTION WIDTH 16.2 % (12.0-15.0)
--- NOTE | 2021-02-25 10:39 | XRAY Report ---
PROCEDURE: Chest 1 View X-Ray INDICATIONS: Chest Pain TECHNIQUE: One view of the chest was acquired. COMPARISON: 02/02/2021 FINDINGS: Surgical changes and devices: Tunneled dialysis catheter. Radiodense foreign body projects over the m edial aspect of the left lung base which is not definitely changed compared to prior examination and is compatible with a metallic foreign body in the anterior left chest wall with a prior CT scan.. Lungs and pleura: Mild cephalization of pulmonary vasculature and interstitial prominence concerning for CHF. Mild, patchy bibasilar opacification. Mediastinum: Mediastinal contours appear normal. Heart size is normal. Bones and chest wall: No suspicious bony lesions. Overlying soft tissues appear unremarkable. IMPRESSION: 1. Mild cephalization of pulmonary vascular and interstitial prominence concerning for CHF/fluid over load. 2. Mild patchy bibasilar airspace opacities slightly progressed compared to 02/02/2021. Finding could represent atelectasis, aspiration or pneumonia. Reviewed by: Mary Torres MD, PhD on 02/25/2021 10:37 AM PST Approved by: Mary Torres MD, PhD on 02/25/2021 10:37 AM PST Station ID: [id number]
[2021-02-25 10:41] LABS: SLIDE REVIEW? Indicated; WHITE BLOOD COUNT 1.9 x10^3/uL (4.8-10.8)
[2021-02-25 10:50] LABS: ALBUMIN 3.2 g/dL (3.2-5.5); ALBUMIN/GLOBULIN RATIO 1.4 (1.0-2.2); BILIRUBIN,TOTAL 1.3 mg/dL (0.2-1.0); CALCIUM 7.2 mg/dL (8.5-10.3); CREATININE 2.2 mg/dL (0.6-1.2); MAGNESIUM 1.8 mg/dL (1.7-2.8); POTASSIUM 4.7 mmol/L (3.5-5.0); TOTAL PROTEIN 5.5 g/dL (6.7-8.2)
[2021-02-25 12:18] LABS: PLATELET ESTIMATE, MANUAL DECREASED (<130,000) (NORMAL); PLATELET MORPHOLOGY NORMAL APPEARANCE (NORMAL); WBC MORPHOLOGY (MULTIPLE) NORMAL APPEARANCE (NORMAL)
[2021-02-25 12:19] LABS: DIFFERENTIAL COMMENT MANUAL=AUTO DIFF
[2021-02-25] MEDS ORDERED: METOPROLOL TARTRATE 50 MG TABLET PO STA (13:04)
--- NOTE | 2021-02-25 13:18 | Ultrasound Report ---
PROCEDURE: Ultrasound duplex bilateral lower extremity INDICATIONS: Chest pain, lower extremity edema TECHNIQUE: Real-time imaging, as well as color and pulse Doppler interrogation, were performed of the deep veins of both legs from the inguinal ligament to the popliteal fossa. COMPARISON: None FINDINGS: The deep veins are normally compressible, and free of intraluminal thrombus. Color and pu lse Doppler demonstrate normal phasic intravascular flow. There is normal augmentation response to d istal compression maneuver. IMPRESSION: No evidence of deep venous thrombosis, bilateral lower extremities Reviewed by: Bull Giles MD on 02/25/2021 12:17 PM [facility] Approved by: Bull Giles MD on 02/25/2021 12:17 PM [facility] Station ID: [id number]
--- NOTE | 2021-02-25 13:19 | Ultrasound Report ---
PROCEDURE: Ultrasound duplex right upper extremity INDICATIONS: chest pain, recent hosp. legs swelling TECHNIQUE: Real-time imaging, as well as color and pulse Doppler interrogation, were performed of the lower extr emity deep veins from the inguinal ligament to the popliteal fossa. COMPARISON: None. FINDINGS: The deep veins are normally compressible, and free of intraluminal thrombus. Color and pu lse Doppler demonstrate normal phasic intraluminal flow. There is normal augmentation response to di stal compression maneuver. IMPRESSION: No evidence of deep venous thrombosis, right upper extremity Reviewed by: Bull Giles MD on 02/25/2021 12:18 PM [place] Approved by: Bull Giles MD on 02/25/2021 12:18 PM [facility] Station ID: [id number]
[2021-02-25 13:38] VITALS: BP 127/99
== END 2021-02-25 13:49 | disposition home or self-care (01) ==
LOC: ED 09:34
DX: I48.20 Chronic atrial fibrillation, unspecified (principal); R07.89 Other chest pain
CPT/HCPCS: 36415; 71045; 80053; 83690; 83735; 83880; 84484; 85025; 85379; 93005; 93970; 93971; 96374; 96375; 96376; 99284; A9270

== ENCOUNTER 2021-03-29 11:59 | Emergency (ER) | payer MEDICARE ==
--- NOTE | 2021-03-29 12:35 | ED Physician Documentation ---
History of Present Illness - Stated complaint Stated Complaint: Dizziness, weakness - Chief complaint Chief Complaint: General - History obtained from History obtained from: Patient, Family - Additonal information Additional information: 80yo male with recent dx multiple myeloma. Gets chemo at [place] Mon/Thurs. He is always sleepy with poor appetite the day after chemo but persistent today. His oncologist is Dr Coppola in [facility]. Increased fatigue/sleepiness today. Also slight confusion. This is consistent with prior renal failure. Review of Systems Ten Systems: 10 systems reviewed and negative Constitutional: denies: Fever, Chills Cardiac: denies: Chest pain / pressure, Palpitations Respiratory: denies: Dyspnea, Cough PD PAST MEDICAL HISTORY - Past Medical History Cardiovascular: Hypertension, Arrhythmia Respiratory: Sleep apnea, CPAP use Endocrine/Autoimmune: None GI: Cholelithiasis, Other : Nocturia HEENT: Chronic sinusitis, Chronic hearing loss Psych: Depression, Post traumatic stress disorder Musculoskeletal: Osteoarthritis Derm: None - Past Surgical History Past Surgical History: Yes General: Cholecystectomy Ortho: Knee replacement, Other HEENT: Cataracts - Present Medications Home Medications: Ambulatory Orders Medication Instructions Recorded Confirmed hydroCHLOROthiazide 25 mg PO DAILY 07/12/13 02/02/21 [Hydrochlorothiazide] Tramadol HCl [Ultram] 50 mg PO TID PRN 02/02/21 02/02/21 amLODIPine [Norvasc] 5 mg PO DAILY 02/02/21 02/02/21 HYDROcod/ACETAM 5/325 [[place] 5/325] 1 ea PO Q6H PRN #12 tablet 02/25/21 - Allergies Allergies/Adverse Reactions: Allergies Allergy/AdvReac Type Severity Reaction Status Date / Time No Known Drug Allergies Allergy Verified 03/29/21 12:06 - Social History Does the pt smoke?: No Smoking Status: Never smoker Does the pt drink ETOH?: No Does the pt have substance abuse?: No - Immunizations Immunizations are current?: Yes - POLST Patient has POLST: No PD ED PE NORMAL - Vitals Vital signs reviewed: Yes - General General: No acute distress, Well developed/nourished, Other (Slightly slow/repetitive answers, mild confusion) - HEENT HEENT: PERRL, EOMI - Neck Neck: Supple, no meningeal sign, No bony TTP - Cardiac Cardiac: Other (irregular/irregular) - Respiratory Respiratory: No respiratory distress, Clear bilaterally - Abdomen Abdomen: Normal bowel sounds, Soft, Non tender - Back Back: No CVA TTP, No spinal TTP - Derm Derm: Normal color, Warm and dry - Extremities Extremities: Other (3+ bilateral pitting edema) - Neuro Neuro: No motor deficit, No sensory deficit Eye Opening: Spontaneous Motor: Obeys Commands Verbal: Confused GCS Score: 14 Results - Vitals Vitals: Vital Signs - 24 hr 03/29/21 03/29/21 03/29/21 12:06 12:30 14:00 Temperature 36.8 C Heart Rate 110 H 112 H 117 H Respiratory 20 19 14 Rate Blood Pressure 118/61 98/78 121/81 H O2 Saturation 96 94 99 Oxygen O2 Source Room air - EKG (time done) 1232 Rate: Rate (enter#) (113) Rhythm: Atrial fibrillation Intervals: Other (IVCD) Ischemia: Q waves (inferior). No: ST elevation c/w ischemia, ST depression - Labs Labs: Laboratory Tests 03/29/21 03/29/21 03/29/21 12:37 12:37 12:37 WBC 7.7 RBC 2.56 L Hgb 8.8 L Hct 26.0 L MCV 101.6 H MCH 34.4 H MCHC 33.8 RDW 16.0 H Plt Count 119 L MPV 10.8 Neut # (Auto) Not Reportable Lymph # (Auto) Not Reportable [place] # (Auto) Not Reportable Eos # (Auto) Not Reportable Baso # (Auto) Not Reportable Absolute Nucleated RBC Not Reportable Total Counted 100 Band Neuts % (Manual) 3 Abnorm Lymph % (Manual) 0 Nucleated RBC % Not Reportable Neutrophils # (Manual) 5.5 Lymphocytes # (Manual) 1.0 L Monocytes # (Manual) 1.1 H Eosinophils # (Manual) 0.2 Basophils # (Manual) 0.0 Nucleated RBCs 1 Differential Comment MANUAL DIFFERENTIAL Platelet Estimate DECREASED (<130,000) Platelet Morphology NORMAL APPEARANCE RBC Morph Micro Appear 1+ OVALOCYTES Sodium 133 L Potassium 2.8 L Chloride 85 L Carbon Dioxide 32 Anion Gap 16.0 H BUN 72 H Creatinine 2.8 H Estimated GFR (MDRD) 22 L Glucose 139 H Lactic Acid 0.8 Calcium 8.1 L Phosphorus 2.5 Magnesium 1.9 Total Bilirubin 1.5 H AST 43 H ALT 35 Alkaline Phosphatase 170 H Total Protein 5.9 L Albumin 3.3 Globulin 2.6 Albumin/Globulin Ratio 1.3 PD MEDICAL DECISION MAKING - ED course ED course: 80-year-old gentleman presents with symptoms reminiscent of prior episode of renal failure. His creatinine has gone up from 2.2-2.8 with a prerenal pattern and hypokalemia. I discussed the case by phone with his sheet mill supervisor, Dr. Parkinson who agrees with IV fluids and some potassium supplementation. He is on metolazone which he would like the patient to stop and he is also on torsemide which he says should go down to a half dose for the next few days. Dr. Parkinson agreed with giving him 2 L of crystalloid and potassium supplemen tation here which was done. After the completion of this is mental status and renal function was improving. For example he had not been able to remember the name of his oncologist on arrival but He can now.. Departure - Departure Disposition: 01 Home, Self Care Clinical Impression: Hypokalemia, JUAN CARLOS (acute kidney injury) Multiple myeloma Qualifiers: Multiple myeloma remission status: not in remission Qualified Code(s): C90.00 - Multiple myeloma not having achieved remission Condition: Good Record reviewed to determine appropriate education?: Yes Comments: Viet was seen today for decreased renal function related to dehydration and diuresis as well as his underlying multiple myeloma. His renal function was not nearly as bad as it was when he needed dialysis and only a bit down from where it was according to Dr. Carpenter from the other day. His potassium was also low and he received some potassium both through his IV as well as orally. I discussed your case with Dr. Parkinson, your sheet mill supervisor. He would like you to stop the metolazone And he would like you to decrease your torsemide to just once a day for the next 3 days or so. You should have those repeat labs on Wednesday as scheduled. Return anytime if worsening or if new issues develop.
[2021-03-29] MEDS: SODIUM CHLORIDE 0.9% 1,000 ML IV STA (12:42)
[2021-03-29 12:43] LABS: BASOPHILS % (AUTO) 0.1 %; EOSINOPHILS % (AUTO) 0.9 %; HGB - HEMOGLOBIN 8.8 g/dL (14.0-18.0); LYMPHOCYTES % (AUTO) 8.2 %; MEAN CORPUSCULAR HEMOGLOBIN 34.4 pg (27.0-31.0); MEAN CORPUSCULAR HGB CONC 33.8 g/dL (32.0-36.0); MEAN CORPUSCULAR VOLUME 101.6 fL (80.0-94.0); MEAN PLATELET VOLUME 10.8 fL (7.4-11.4); MONOCYTES % (AUTO) 19.7 %; NEUTROPHILS % (AUTO) 66.2 %; PLT - PLATELET COUNT 119 10^3/uL (130-450); RED BLOOD COUNT 2.56 10^6/uL (4.70-6.10); WHITE BLOOD COUNT 7.7 x10^3/uL (4.8-10.8)
[2021-03-29 12:46] LABS: ABNORMAL LYMPHS % (MANUAL) 0 %
[2021-03-29 12:57] LABS: ALBUMIN 3.3 g/dL (3.2-5.5); ALBUMIN/GLOBULIN RATIO 1.3 (1.0-2.2); BILIRUBIN,TOTAL 1.5 mg/dL (0.2-1.0); CALCIUM 8.1 mg/dL (8.5-10.3); CREATININE 2.8 mg/dL (0.6-1.2); MAGNESIUM 1.9 mg/dL (1.7-2.8); PHOSPHORUS 2.5 mg/dL (2.5-4.6); POTASSIUM 2.8 mmol/L (3.5-5.0); TOTAL PROTEIN 5.9 g/dL (6.7-8.2)
[2021-03-29 13:03] LABS: BAND NEUTROPHILS % (MANUAL) 3 %; EOSINOPHILS # (MANUAL) 0.2 10^3/uL (0-0.7); LYMPHOCYTES % (MANUAL) 13 %; MONOCYTES # (MANUAL) 1.1 10^3/uL (0.0-1.0); NEUTROPHILS # (MANUAL) 5.5 10^3/uL (1.5-6.6); NUCLEATED RBC (MANUAL) 1 %
[2021-03-29 13:04] LABS: DIFFERENTIAL COMMENT MANUAL DIFFERENTIAL; PLATELET ESTIMATE, MANUAL DECREASED (<130,000) (NORMAL); PLATELET MORPHOLOGY NORMAL APPEARANCE (NORMAL)
[2021-03-29] MEDS: POTASSIUM CHLORIDE 20 MEQ TABLET PO STA (13:04)
[2021-03-29] MEDS: LACTATED RINGERS 1,000 ML IV STA (13:04)
[2021-03-29] MEDS: POTASSIUM CHLOR 10 MEQ/100 ML 10 MEQ/100 ML BAG IV ONE (13:35)
[2021-03-29 14:52] VITALS: BP 117/76
== END 2021-03-29 14:59 | disposition home or self-care (01) ==
LOC: ED 11:59
DX: N17.9 Acute kidney failure, unspecified (principal); E87.6 Hypokalemia; C90.00 Multiple myeloma not having achieved remission
CPT/HCPCS: 36415; 80053; 83605; 83735; 84100; 85025; 93005; 96361; 96365; 99284; A9270; J7120

== ENCOUNTER 2021-03-30 09:53 | Emergency (ER) | payer MEDICARE ==
--- NOTE | 2021-03-30 10:08 | ED Physician Documentation ---
PD HPI ALTERED MENTAL STATUS - Stated complaint Stated Complaint: CONFUSION - Chief complaint Chief Complaint: Neuro - History obtained from History obtained from: Patient, Family () - History of Present Illness Timing - onset: How many days ago (2-3) Timing - duration: Days (2-3) Timing - details: Gradual onset Quality / character: Confused, Other (sleepy and general weakness.) Associated symptoms: Urinary sx (hesitant urine output), General weakness. No: Fever, Headache, Dyspnea, Cough, Syncope Contributing factors: No: Recent med change (no med change prior to curent symptoms, but had diuretic held ysterday.), Recent illness, Recent injury Basline status: Alert and oriented X 3 (with some forgetfulness per . CUrrent repetitive questions and sluggish answers is new for him, and is similar to prior episode of kidney failure and lytes abnormal in the past.). No: Confused Treatment MARKET STALL VENDOR: Accucheck Similar symptoms before: Diagnosis (similar symptoms with episode of renal failure in the past. No history of CVA.) Recently seen: Emergency Dept (yesterday with similar symptoms and says not improved into today. Elevated Creatinine and was given IV fluids and told to hold metazolone and decreast torsemide.) Review of Systems Constitutional: denies: Fever, Chills Nose: denies: Rhinorrhea / runny nose, Congestion Throat: denies: Sore throat Respiratory: denies: Cough Skin: denies: Abrasion (s), Laceration (s) Musculoskeletal: denies: Neck pain, Back pain Neurologic: reports: Generalized weakness, Confused. denies: Focal weakness, Numbness, Near syncope, Headache, Head injury Endocrine: denies: Weight loss PD PAST MEDICAL HISTORY - Past Medical History Cardiovascular: Hypertension, Atrial fibrillation, Arrhythmia Respiratory: Sleep apnea, CPAP use Neuro: None Endocrine/Autoimmune: None GI: Cholelithiasis, Other : Nocturia HEENT: Chronic sinusitis, Chronic hearing loss Psych: Depression, Post traumatic stress disorder Musculoskeletal: Osteoarthritis Derm: None - Past Surgical History Past Surgical History: Yes General: Cholecystectomy Ortho: Knee replacement, Other HEENT: Cataracts - Present Medications Home Medications: Ambulatory Orders Medication Instructions Recorded Confirmed hydroCHLOROthiazide 25 mg PO DAILY 07/12/13 02/02/21 [Hydrochlorothiazide] Tramadol HCl [Ultram] 50 mg PO TID PRN 02/02/21 02/02/21 amLODIPine [Norvasc] 5 mg PO DAILY 02/02/21 02/02/21 HYDROcod/ACETAM 5/325 [[place] 5/325] 1 ea PO Q6H PRN #12 tablet 02/25/21 Na Phos,M-B/K Phos,Monob [K-Phos 1 each PO BID #14 tablet 03/30/21 #2 Tablet] - Allergies Allergies/Adverse Reactions: Allergies Allergy/AdvReac Type Severity Reaction Status Date / Time No Known Drug Allergies Allergy Verified 03/30/21 10:04 - Social History Does the pt smoke?: No Smoking Status: Never smoker Does the pt drink ETOH?: No Does the pt have substance abuse?: No - Immunizations Immunizations are current?: Yes - POLST Patient has POLST: No PD ED PE NORMAL - Vitals Vital signs reviewed: Yes (monitor showing atrial fib.) - General General: Alert and oriented X 3, No acute distress, Well developed/nourished - HEENT HEENT: Atraumatic - Neck Neck: Supple, no meningeal sign, No adenopathy, No JVD - Cardiac Cardiac: No murmur. No: RRR (irregular but only mildly tachycardic. ) - Respiratory Respiratory: No respiratory distress (unlabored breathing. ), Clear bilaterally (with minimal fine crackles very bases. No diffuse crackles nor wheezes. ) - Abdomen Abdomen: Soft, Non tender, Non distended, Other (hernia felt supraumbilical without tenderness nor firmness. There is fullness in suprapubic area c/w likely bladder. ). No: Normal bowel sounds (increased bowel sounds lower abd. ) - Back Back: No CVA TTP - Derm Derm: Normal color, Warm and dry - Extremities Extremities: No calf tenderness / cord, Other (1+ edema in both lower legs, which is baseline per . ) - Neuro Neuro: Alert and oriented X 3 (conversant but defers to to answer at times.), No motor deficit, No sensory deficit, Normal speech Results - Vitals Vitals: Vital Signs - 24 hr 03/30/21 03/30/21 03/30/21 09:56 10:27 12:59 Temperature 36.8 C Heart Rate 112 H 125 H 106 H Respiratory 24 17 14 Rate Blood Pressure 128/72 101/52 L 120/64 O2 Saturation 94 94 99 03/30/21 03/30/21 03/30/21 13:00 15:19 17:05 Temperature Heart Rate 102 H 86 Respiratory 16 20 Rate Blood Pressure 136/72 H 112/75 O2 Saturation 95 98 95 Oxygen O2 Source Room air - Labs Labs: Laboratory Tests 03/30/21 03/30/21 03/30/21 10:40 10:40 10:40 Sodium 135 Potassium 2.8 L Chloride 88 L Carbon Dioxide 30 Anion Gap 17.0 H BUN 71 H Creatinine 2.9 H Estimated GFR (MDRD) 21 L Glucose 127 H Calcium 7.9 L Phosphorus 1.9 L Magnesium 2.0 Total Bilirubin 2.2 H AST 36 ALT 32 Alkaline Phosphatase 151 H B-Natriuretic Peptide 342 H Total Protein 5.7 L Albumin 3.0 L Globulin 2.7 Albumin/Globulin Ratio 1.1 Lipase 23 TSH 1.10 Urine Color Urine Clarity Urine pH Ur Specific [place] Urine Protein Urine Glucose (UA) Urine Ketones Urine Occult Blood Urine Nitrite Urine Bilirubin Urine Urobilinogen Ur Leukocyte Esterase Ur Microscopic Review Urine Culture Comments 03/30/21 15:40 Sodium Potassium Chloride Carbon Dioxide Anion Gap BUN Creatinine Estimated GFR (MDRD) Glucose Calcium Phosphorus Magnesium Total Bilirubin AST ALT Alkaline Phosphatase B-Natriuretic Peptide Total Protein Albumin Globulin Albumin/Globulin Ratio Lipase TSH Urine Color YELLOW Urine Clarity CLEAR Urine pH 6.0 Ur Specific [place] <=1.005 Urine Protein TRACE Urine Glucose (UA) NEGATIVE Urine Ketones NEGATIVE Urine Occult Blood NEGATIVE Urine Nitrite NEGATIVE Urine Bilirubin NEGATIVE Urine Urobilinogen 1 (NORMAL) Ur Leukocyte Esterase NEGATIVE Ur Microscopic Review NOT INDICATED Urine Culture Comments NOT INDICATED - Rads (name of study) head CT Radiology: Prelim report reviewed (unremarkable brain CT), See rad report abd/pelvis CT Radiology: Prelim report reviewed (ventral hernia with bowel loops without incarceration. No obstruction pattern. Iliac crest with lytic bony lesion. ), See rad report chest xray Radiology: Prelim report reviewed (cardiomegaly and moderate vascular congestion.), See rad report PD MEDICAL DECISION MAKING - ED course Complexity details: reviewed results (mainly unchanged creatinine, K, sodium. ALso now add low phosphorus. ), re-evaluated patient (still with some lower abd tender/fullness and does not seem to be the hernia. BLadder scanner showed 500 ml and he was able to void just trickle. So urinary retention could account for his elevated Creatinine and subsequent lytes abnormal. ), considered differential, d/w patient, d/w family ( - who says the pateint has not improved from yesterday despite holding his diuretic. ), d/w managed services sales consultant (I talked with Dr. Parkinson, who directed KPhos replacement, hold the diuretics. Low salt otherwise. TO follow up with repeat labs and update symptoms tomorrow ( to call office).) ED course: Patient with still some apparent confusion. HE was conversant and seemed okay here. Given some more IV fluids but I did not want to overload him. Main supplemented potassium and phosphorus. SOme IV fluid for prewumed prerenal. But them bladder fullness better identifiied and uriarte placed. Patient remained okay and rested, rouses okay. HE was watched in ER longer than otherwise would due to no beds for hospitalization and wanting to ensure he is not worsening. Departure - Departure Disposition: 01 Home, Self Care Clinical Impression: Hypokalemia, Hypophosphatemia, Renal insufficiency, Urinary retention Condition: Stable Record reviewed to determine appropriate education?: Yes Follow-Up: Doug Parkinson MD [Primary Care Provider] - Prescriptions: Na Phos,M-B/K Phos,Monob [K-Phos #2 Tablet] 1 each PO BID #14 tablet Comments: You are having a an overly full bladder without good emptying. This may have accounted for the abdominal cramping and fullness. The CT scan did not show any other acute process. The back pressuring from a full bladder could also have affected the kidney function. Keep the uriarte in place for now until follow up with PMD/Heating And Ventilating Worker to decide how long to have it in. Your potassium and phosphorus levels were low and Dr. Parkinson suggested adding a supplement for those for the short-term. I wrote a prescription for that. Dr. Parkinson also suggested holding your metaxalone and torsemide for a couple of days. Try to have a low-salt diet so as to minimize any fluid retention. We jey the blood test that had been ordered by Dr. Parkinson. However he would still like the electrolytes including potassium and phosphorus rechecked in a couple of days, call tomorrow to his office to update how you are doing and to have those tests we ordered. See how you do over the next day or 2. Return if needed. The CT of your head as well as other blood tests appear normal. No signs of infection in the urine. We do not see another notable process causing your symptoms so hopefully will improve with improved kidney function and electrolytes. Discharge Date/Time: 03/30/21 17:11
[2021-03-30] MEDS ORDERED: METOPROLOL 5 MG/5 ML VIAL IVP STA (10:30)
[2021-03-30] MEDS ORDERED: POTASSIUM CHLOR 10 MEQ/100 ML 10 MEQ/100 ML BAG IV STA (10:30)
[2021-03-30 11:09] LABS: ALBUMIN/GLOBULIN RATIO 1.1 (1.0-2.2); BILIRUBIN,TOTAL 2.2 mg/dL (0.2-1.0); CALCIUM 7.9 mg/dL (8.5-10.3); CREATININE 2.9 mg/dL (0.6-1.2); PHOSPHORUS 1.9 mg/dL (2.5-4.6); POTASSIUM 2.8 mmol/L (3.5-5.0); TOTAL PROTEIN 5.7 g/dL (6.7-8.2)
[2021-03-30] MEDS ORDERED: POTASSIUM PHOSPHATE 15 MMOL in SODIUM CHLORIDE 0.9% 250 ML IV ONE (11:32)
--- NOTE | 2021-03-30 11:36 | XRAY Report ---
PROCEDURE: Chest 1 View X-Ray INDICATIONS: chest pain TECHNIQUE: One view of the chest was acquired. COMPARISON: 02/25/2021 FINDINGS: Surgical changes and devices: None. Lungs and pleura: No pleural effusions or pneumothorax. Lungs are clear. Mediastinum: Mediastinal contours appear normal. Heart size is enlarged, there is moderate vascular congestion present, accentuated by low lung volumes. Bones and chest wall: No suspicious bony lesions. Overlying soft tissues appear unremarkable. IMPRESSION: Cardiomegaly and moderate vascular congestion Reviewed by: Bull Giles MD on 03/30/2021 10:35 AM [facility] Approved by: Bull Giles MD on 03/30/2021 10:35 AM [facility] Station ID: [id number]
[2021-03-30] MEDS ORDERED: SODIUM CHLORIDE 0.9% 500 ML IV STA (11:58)
--- NOTE | 2021-03-30 11:58 | CT Report ---
PROCEDURE: CT brain without contrast INDICATIONS: 72-year-old male with confusion TECHNIQUE: Noncontrast 4.5 mm thick angled axial sections acquired from the foramen magnum to the vertex. For r adiation dose reduction, the following was used: automated exposure control, adjustment of mA and/or kV according to patient size. COMPARISON: None. FINDINGS: Image quality: Excellent. CSF spaces: Basal cisterns are patent. No extra-axial fluid collections. Ventricles are normal in size and shape. Brain: No midline shift. No intracranial masses or hemorrhage. Tillman-white matter interface is norm al. Skull and face: Calvarium and visualized facial bones are intact, without suspicious lesions. Sinuses: Mild right maxillary sinus mucosal thickening. Remainder of the visualized sinuses and masto ids are clear. IMPRESSION: Unremarkable CT brain Reviewed by: Bull Giles MD on 03/30/2021 10:57 AM [facility] Approved by: Bull Giles MD on 03/30/2021 10:57 AM [facility] Station ID: [id number]
--- NOTE | 2021-03-30 12:11 | CT Report ---
PROCEDURE: CT abdomen and pelvis without contrast INDICATIONS: abd pain diffuse; confusion TECHNIQUE: Noncontrast 5 mm thick sections acquired from the diaphragms to the symphysis. 5 mm coronal and sagi ttal reformats were then performed. For radiation dose reduction, the following was used: automated exposure control, adjustment of mA and/or kV according to patient size. COMPARISON: 02/02/2021 FINDINGS: Image quality: Excellent. ABDOMEN: Lung bases: Right basilar small pleural effusion associated with compressive atelectasis and or infil trate. Heart size is normal. Solid organs: Liver and spleen are normal in size. There are surgical clips in the gallbladder fossa as well as a cystic structure containing a calculi. Correlate with surgical history. Bilateral nonob structive renal calculi present. No hydronephrosis. Pancreas is normal in contours. No adrenal nodu les. Kidneys are normal in size, without hydronephrosis or nephrolithiasis. Peritoneum and bowel: Unenhanced bowel loops demonstrate normal wall thickness and caliber. No free fluid or air. Normal appearing appendix present. Nodes and vessels: No retroperitoneal or mesenteric adenopathy by size criteria. Aorta and inferior vena cava are normal in caliber. Miscellaneous: Ventral hernia containing bowel remains unchanged from the prior exam. PELVIS: Genitourinary: Bladder wall thickness is normal. Miscellaneous: No inguinal hernias or adenopathy. Bones: No suspicious bony lesions. No vertebral body compression fractures. In the left iliac bone , there is a 2.3 cm lytic lesion which erodes the lateral cortex . Smaller lytic lesions noted in the right iliac, left sacrum, and T7 vertebral body IMPRESSION: 1. Small right pleural effusion with associated atelectasis and or infiltrate. 2. 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 Consider follow-up bone scan and/or biopsy 3. Nonobstructive bilateral renal calculi. No hydronephrosis. Reviewed by: Bull Giles MD on 03/30/2021 11:10 AM [facility] Approved by: Bull Giles MD on 03/30/2021 11:10 AM [facility] Station ID: [id number]
[2021-03-30 15:57] LABS: BILIRUBIN,URINE NEGATIVE (NEGATIVE); GLUCOSE, URINE (UA) NEGATIVE (NEGATIVE); KETONES,URINE (UA) NEGATIVE (NEGATIVE); LEUKOCYTE ESTERASE, URINE NEGATIVE (NEGATIVE); NITRITE,URINE NEGATIVE (NEGATIVE); OCCULT BLOOD,URINE NEGATIVE (NEGATIVE); PROTEIN,URINE TRACE mg/dL (NEGATIVE); UROBILINOGEN,URINE 1 (NORMAL) E.U./dL (NORMAL)
[2021-03-30 16:01] LABS: CLARITY,URINE CLEAR (CLEAR)
[2021-03-30 17:05] VITALS: BP 112/75
== END 2021-03-30 17:11 | disposition home or self-care (01) ==
LOC: ED 09:53
DX: N28.9 Disorder of kidney and ureter, unspecified (principal); E87.6 Hypokalemia; E83.39 Other disorders of phosphorus metabolism; R33.9 Retention of urine, unspecified; I10 Essential (primary) hypertension; I48.91 Unspecified atrial fibrillation
CPT/HCPCS: 36415; 51702; 51798; 80053; 81001; 81003; 82306; 83519; 83690; 83735; 83880; 84100; 84443; 87086; 99283